=== PATIENT | female | born 2000 | race Caucasian/White ===

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

== ENCOUNTER 2021-12-02 08:49 | Emergency (ER) | payer MEDICAID ==
[~2021-12-02] VITALS: Ht 154.9 cm; Wt 63.5 kg
--- NOTE | 2021-12-02 11:06 | ED EENT ---
History of Present Illness General Chief Complaint: Nasal Problems Stated Complaint: NOSE PAIN / SWELLING Nursing Triage Note: PT AMB TO TRIAGE WITH COMPLAINT OF NOSE INJURY. STATES TEN DAYS AGO WAS HIT IN THE NOSE WHILE PLAYING RUGBY. Source: patient Exam Limitations: no limitations History of Present Illness Date Seen by Provider: Dec 02, 2021 Time Seen by Provider: 11:02 Initial Comments Patient is a 21-year-old female presents ED nose injury. 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 She had an injury 10 days ago. Opponent hit the right side of her nose. She had immediate swelling with a nosebleed. She did vomit with nausea. Potential concussion. She states she was slightly disoriented but no loss of consciousness. She denies of any head pain, visual loss, neck pain, difficulty breathing, continued nosebleed. She is concerned for crunching of her nose and a possible nasal bone fracture. She is not currently playing rugby at this time. Denies fever, chills, chest pain, shortness of breath, mid to lower back pain. Allergies and Home Medications Allergies Coded Allergies: No Known Drug Allergies (Unverified , 08/06/11) Patient Home Medication List Home Medication List Reviewed: Yes Cetirizine Hcl (Cetirizine Hcl) 10 Mg Tablet, 10 MG PO DAILY, (Reported) Entered as Reported by: KIRAN SULTANA on 10/29/141726 Montelukast Sodium (Singulair) 10 Mg Tablet, 10 MG PO DAILY, (Reported) Entered as Reported by: KIRAN SULTANA on 10/29/141726 Review of Systems Review of Systems Constitutional: No chills, No diaphoresis, No fever, No malaise Eyes: Denies Blurred Vision, Denies Drainage, Denies Decreased Acuity Ears: Denies Dizziness, Denies Pain, Denies Bloody Discharge, Denies Clear Discharge Nose: denies clots, denies bloody discharge; previous injury Mouth: denies clots, denies loose teeth Throat: denies swelling, denies discharge, denies neck stiffness, denies hoarse, denies painful swallowing, denies difficulty with fluids Respiratory: No cough Cardiovascular: No chest pain Gastrointestinal: No abdominal pain, No diarrhea, No nausea, No vomiting Past Pvrwkph-Lxjosb-Dtwxrt Hx Patient Social History Tobacco Use?: No Use of E-Cig and/or Vaping dev: No Substance use?: No Alcohol Use?: Yes Alcohol Frequency: Once in a while Pt feels they are or have been: No Immunizations Up To Date Tetanus Booster (TDap): Unknown Past Medical History Reproductive Disorders: No Physical Exam Vital Signs Vital Signs - First Documented 12/02/21 09:18 Pulse 83 Resp 16 B/P (MAP) 131/94 (106) Pulse Ox 97 O2 Delivery Room Air Height, Weight, BMI Height: 5'1" Weight: 118lbs. oz. 53.978932ok; 26.00 BMI Method: General Appearance: WD/WN, no apparent distress Eyes: bilateral eye normal inspection, bilateral eye PERRL, bilateral eye EOMI Ears: bilateral ear auricle normal, bilateral ear canal normal, bilateral ear TM normal Nose: normal inspection; No active bleeding, No foreign body, No sinus tenderness Mouth/Throat: normal mouth inspection, pharynx normal; No dental tenderness, No foreign body Neck: non-tender, full range of motion, supple, normal inspection Cardiovascular: regular rate, rhythm, no edema, no gallop, no JVD Respiratory: chest non-tender, lungs clear, normal breath sounds, no respiratory distress, no accessory muscle use Gastrointestinal: normal bowel sounds, non tender, soft, no organomegaly Neurologic/Psychiatric: glass beveler II-XII nml as tested, no motor/sensory deficits, alert, normal mood/affect Skin: normal color, warm/dry Progress/Results/Core Measures Results/Orders Vital Signs/I&O 12/02/21 12/02/21 09:18 11:15 Pulse 83 76 Resp 16 19 B/P (MAP) 131/94 (106) 130/89 Pulse Ox 97 98 O2 Delivery Room Air Blood Pressure Mean: 106 Departure Communication (Admissions) Patient with a nose injury 10 days ago. She plays rugby. No obvious deformity. Tenderness to the right nasal bridge. Possible fracture. She has no evidence of a nasal septal hematoma. No obvious nose nasal septum deviation no difficulty breathing. Discussed potential concussive syndrome. She needs to be medically cleared before returning back to sports. Provided follow-up with primary care physician. Did offer CT scan maxillofacial. She would rather wait. Would likely benefit just following up with ENT if any further treatment they may reset the nose. She agrees with this plan of action. Anti- inflammatories. No neurological red flag findings. Imaging was held at this time. Impression Primary Impression: Nose pain Disposition: 01 HOME, SELF-CARE Condition: Stable Departure-Patient Inst. Decision time for Depature: 11:04 Referrals: MAEGAN ROBLES MD [facility] (PCP/Family) Primary Care Physician Patient Instructions: Nose Fracture DONATO HERNANDEZ Dec 02, 2021 11:06
[2021-12-02 11:15] VITALS: BP 130/89
== END 2021-12-02 11:15 | disposition home or self-care (01) ==
LOC: EDUNIT# 08:49 → ER 08:51
DX: J34.89 Other specified disorders of nose and nasal sinuses (principal)
CPT/HCPCS: 99281

== ENCOUNTER 2023-04-01 13:26 | Emergency (ER) | payer MEDICAID ==
[~2023-04-01] VITALS: Ht 157.4 cm; Wt 61.9 kg
[2023-04-01 13:39] VITALS: BP 128/82
--- NOTE | 2023-04-01 14:24 | ED Lower Extremity ---
General Chief Complaint: Lower Extremity Stated Complaint: RT KNEE PAIN Nursing Triage Note: Patient states she is here today to get an MRI on her Rt. knee. Patient states she looses her insurance today at midnight. Patient states her insurance has her MRI approval in pending status. Patient states she hurt her Rt. knee 9 wks ago. Source: patient Exam Limitations: no limitations History of Present Illness Date Seen by Provider: Apr 01, 2023 Time Seen by Provider: 14:13 Initial Comments 22-year-old female presents to the ER for an MRI of her right knee. She states that she was seen by Gokul Lowery orthopedic [employer] a week and a half ago and he put in an order for an MRI. She states that he is concerned for an ACL tear. She injured her knee approximately 9 weeks ago. She states that her insurance has not approved the MRI, and she is going to lose her insurance tonight at midnight. She states that she was given a brace by orthopedics and has been wearing it, she stopped wearing it though because she was worried about muscle atrophy. She denies any medical history, does not taking medications regularly. She requested a prescription for an anti-inflammatory. Instructed that she can get these [id number]. Allergies and Home Medications Allergies Coded Allergies: No Known Drug Allergies (Unverified , 08/06/11) Patient Home Medication List Home Medication List Reviewed: Yes Cetirizine Hcl (Cetirizine Hcl) 10 Mg Tablet, 10 MG PO DAILY, (Reported) Entered as Reported by: KIRAN SULTANA on 10/29/141726 Montelukast Sodium (Singulair) 10 Mg Tablet, 10 MG PO DAILY, (Reported) Entered as Reported by: KIRAN SULTANA on 10/29/141726 Review of Systems Constitutional: see HPI Past Xmkpmsd-Kxdibw-Bnmadl Hx Patient Social History Tobacco Use?: No Use of E-Cig and/or Vaping dev: No Substance use?: No Alcohol Use?: Yes Alcohol type: Beer, Hard Liquor Alcohol Frequency: Once in a while Immunizations Up To Date Tetanus Booster (TDap): Unknown Influenza Vaccine Up-to-Date: No; Not Current Past Medical History Last Menstrual Period: February 28, 2023 Reproductive Disorders: No Physical Exam Vital Signs Vital Signs - First Documented 04/01/23 13:39 Temp 37.0 Pulse 74 Resp 12 B/P (MAP) 128/82 (97) O2 Delivery Room Air Capillary Refill : Height, Weight, BMI Height: 5'1" Weight: 118lbs. oz. 53.691663ot; 24.00 BMI Method: General Appearance: WD/WN, no apparent distress Neck: supple, normal inspection Cardiovascular: regular rate, rhythm Respiratory: lungs clear, normal breath sounds, no respiratory distress, no accessory muscle use Knees: right knee pain Neurologic/Psychiatric: alert, normal mood/affect Skin: normal color, warm/dry Progress/Results/Core Measures Results/Orders Vital Signs/I&O 04/01/23 13:39 Temp 37.0 Pulse 74 Resp 12 B/P (MAP) 128/82 (97) O2 Delivery Room Air Blood Pressure Mean: 97 Progress Progress Note : Progress Note Patient seen evaluated, resting comfortably in recliner, no acute distress. I informed patient that unfortunately we are unable to do an MRI from the ER. Patient is understandable. Patient instructed to continue to wear the knee brace as instructed by orthopedics. Instructed to try to get insurance again because if she does have an ACL tear they will likely need to do surgery and she will need insurance for that. Instructed patient to obtain ibuprofen [id number]. Discharge instructions and return precautions provided. Departure Impression Primary Impression: Knee pain Qualified Codes: M25.561 - Pain in right knee Disposition: 01 HOME, SELF-CARE Condition: Stable Departure-Patient Inst. Decision time for Depature: 14:20 Referrals: [facility] (PCP/Family) Primary Care Physician Patient Instructions: Anterior Cruciate Ligament Tear (DC) Add. Discharge Instructions: Follow-up with orthopedics. Wear your knee brace as instructed by orthopedics. You may take 800 mg of ibuprofen with food every 8 hours as needed for pain. Return for any new, concerning, or worsening symptoms. All discharge instructions reviewed with patient and/or family. Voiced understanding. MATIAS ACOSTA APRN Apr 01, 2023 14:24
== END 2023-04-01 14:24 | disposition home or self-care (01) ==
LOC: EDUNIT# 13:26 → ER 13:28
DX: M25.561 Pain in right knee (principal)
CPT/HCPCS: 99281

== ENCOUNTER → 2023-04-14 | Outpatient (CLI) | payer MEDICAID ==
--- NOTE | 2023-04-14 10:25 | Diagnostic Imaging Report ---
EXAMINATION: Magnetic resonance imaging of the right knee without intravenous contrast DATE: April 14, 2023. COMPARISON: None. INDICATION: 23-year-old female, right knee pain. Injury. TECHNIQUE: Multiplanar, multisequence non contrast enhanced MR imaging was accomplished. FINDINGS: MENISCI: There is an oblique tear involving the body, posterior horn, and posterior root attachment of the medial meniscus. There is no medial meniscal extrusion. The lateral meniscus is intact. LIGAMENTS AND TENDONS: There is irregularity of the contour the anterior cruciate ligament which is difficult to visualize throughout its entire extent. This likely reflects at least a high-grade partial thickness versus complete tear of the anterior cruciate ligament. The posterior cruciate ligament is intact. The medial collateral ligament is intact. The iliotibial band, mid third lateral capsular ligament, fibular collateral ligament, biceps femoris tendon and conjoined tendon are intact. The quadriceps tendon and patella ligament are intact. JOINT: The articular cartilage surfaces are intact. There is no knee joint effusion, prominent synovitis, or intra-articular body. BONE: There is no acute fracture. There is edema-like signal in the posterior aspect of the medial tibial plateau and edema-like signal in the lateral aspect of the proximal tibial metaphysis including posteriorly. There is also edema-like signal in the lateral femoral condyle. This likely reflect sites of bone contusion. BURSAE AND SOFT TISSUES: No Bakers cyst. IMPRESSION: 1. High-grade partial versus complete tear of the anterior cruciate ligament. Intact posterior cruciate ligament. 2. Oblique tear involving the body, posterior horn, and posterior root attachment of the medial meniscus without medial meniscal extrusion. 3. Bone contusions of the lateral femoral condyle, lateral aspect of the proximal tibia, and posterior aspect of the medial tibial plateau. No acute fracture. 4. No identified cartilage defect. No knee joint effusion. Dictated by: Dictated on workstation # [id number]
== END ==
LOC: RAD 08:45
PROVIDERS: ATTEND Nurse Practitioner
DX: S83.206A Unspecified tear of unspecified meniscus, current injury, right knee, initial encounter (principal); X58.XXXA Exposure to other specified factors, initial encounter
CPT/HCPCS: 73721